=== PATIENT | female | born 1995 | race Caucasian/White ===

== ENCOUNTER 2020-03-11 20:21 | Emergency (ER) | payer MEDICAID ==
[~2020-03-11] VITALS: Ht 152.4 cm; Wt 45.4 kg
[~2020-03-11 20:21] MED LIST: KEP500 PO
[2020-03-11 20:34] VITALS: BP 107/71
--- NOTE | 2020-03-11 20:34 | NUR ---
PT BIBA C/O witnessed seizure lasting approximately 1 min. Per EMS PT was walking with family when seizure occured, fell concrete, PT non-compliant with keppra. PT has laceration to chin, bleeding controlled with gauze. PT AAOx4, cooperative, calm, giving 1 word answers to questions. EMS put PT in cervical collar, started 18G IV in LT AC, and started 1L NS bolus PMH:seizure
[2020-03-11] MEDS ORDERED: NACL 0.9% 1,000 ML IV ONE (20:40)
--- NOTE | 2020-03-11 20:44 | NUR ---
PT WOUND CLEANED WITH NORMAL SALINE
[2020-03-11] MEDS ORDERED: KETOROLAC 30 MG/ML VIAL IVP ONE (20:45)
[2020-03-11] MEDS ORDERED: LIDOCAINE 2% 1000 MG/50 ML VIAL INJ ONE (20:45)
[2020-03-11 20:56] LABS: BASOPHILS % (AUTO) 0.6 % (0.0-2.0); EOSINOPHILS # (AUTO) 0.1 K/uL (0-0.4); EOSINOPHILS % (AUTO) 1.2 % (0.0-4.0); HEMATOCRIT 35.9 % (36-48); HEMOGLOBIN 11.8 g/dL (12.0-16.0); LYMPHOCYTES # (AUTO) 1.8 K/uL (2.5-16.5); LYMPHOCYTES % (AUTO) 25.4 % (20.5-51.1); MEAN CORPUSCULAR HEMOGLOBIN 29 pg (27-31); MEAN CORPUSCULAR HGB CONC 33 g/dL (33-37); MEAN CORPUSCULAR VOLUME 87.8 fL (80-94); MONOCYTES # (AUTO) 0.4 K/uL (0.8-1.0); MONOCYTES % (AUTO) 6.2 % (1.7-9.3); NEUTROPHILS # (AUTO) 4.7 K/uL (1.8-7.7); NEUTROPHILS % (AUTO) 66.6 % (42.2-75.2); PLATELET COUNT (AUTO) 228 K/uL (140-450); RED BLOOD CELL COUNT(AUTO) 4.09 MIL/uL (4.20-5.40); RED CELL DISTRIBUTION WIDTH 12.9 % (11.6-13.7); WHITE BLOOD COUNT (AUTO) 7.1 K/uL (4.8-10.8)
[2020-03-11 21:10] LABS: ACETAMINOPHEN < 0.5 ug/ml (10-30); ALBUMIN 3.4 g/dL (3.4-5.0); ANION GAP 13.6 (8-16); ASPARTATE AMINOTRANSFERASE 16 U/L (15-37); CARBON DIOXIDE 25.9 mmol/L (21-32); CHLORIDE 107 mmol/L (98-107); CREATININE 0.8 mg/dL (0.6-1.3); GFR ARICAN-AMERICAN 112 mL/min (>90); GLUCOSE 104 mg/dL (74-106); POTASSIUM 3.5 mmol/L (3.5-5.1); SALICYLATE < 2.8 mg/dL (2.8-20.0); SODIUM SERUM 143 mmol/L (136-145); TOTAL BILIRUBIN 0.2 mg/dL (0.0-1.0); UREA NITROGEN, BLOOD 8 mg/dL (7-18)
--- NOTE | 2020-03-11 21:17 | NUR ---
PT TAKEN TO CT VIA RBO.
[2020-03-11] MEDS ORDERED: levETIRAcetam 1,000 MG in NACL 0.9% 100 ML IV ONE (22:15)
--- NOTE | 2020-03-11 22:17 | NUR ---
Luis boston in [facility] - 03/11/20 at 2219 by SEN per pt daughter PT specialist is Dr Goddard, phone number is [phone]. PT PCP is Dr Forbes, phone number [phone]
[2020-03-11] MEDS ORDERED: levETIRAcetam 100 MG/ML VIAL IV ONE (22:25)
--- NOTE | 2020-03-11 22:46 | NUR ---
PER DR CLAUDE DIAZ TO REMOVE C COLLAR FROM PT
--- NOTE | 2020-03-11 23:12 | NUR ---
DR ARCE AT BEDSIDE FOR BEDSIDE PROCEDURE
[2020-03-11] MEDS ORDERED: BACITRACIN OINT 500 UNITS/GM PKT TP ONE (23:15)
[2020-03-11] MEDS ORDERED: IBUPROFEN 800 MG TAB PO ONE (23:20)
[2020-03-11 23:41] VITALS: BP 98/61
--- NOTE | 2020-03-11 23:41 | NUR ---
Patient discharged with v/s stable. Written and verbal after care instructions given and explained. Patient alert, oriented and verbalized understanding of instructions. Ambulatory with steady gait. All questions addressed prior to discharge. ID band removed. Patient advised to follow up with PMD. Rx of KEPPRA, MOTRIN, BACTRIM, NEOSPORIN given. Patient educated on indication of medication including possible reaction and side effects. Opportunity to ask questions provided and answered.
[2020-03-12 01:36] LABS: BARBITURATE, URINE NEGATIVE ng/ml (NEG <=200); BENZODIAZEPINE, URINE NEGATIVE ng/mL (NEG <=200); CANNABINOID, URINE NEGATIVE ng/mL (NEG <=50); COCAINE, URINE NEGATIVE ng/mL (NEG <=300); OPIATE, URINE NEGATIVE ng/mL (NEG <=2000); PHENCYCLIDINE SCREEN,URINE NEGATIVE ng/mL (NEG <=25)
== END 2020-03-11 23:41 | disposition home or self-care (01) ==
LOC: MED 20:21
DX: S01.81XA Laceration without foreign body of other part of head, initial encounter (principal); R56.9 Unspecified convulsions; W18.39XA Other fall on same level, initial encounter; Z79.899 Other long term (current) drug therapy; Y93.89 Activity, other specified; Y92.89 Other specified places as the place of occurrence of the external cause; Y99.8 Other external cause status
CPT/HCPCS: 12013; 36415; 70450; 70486; 72125; 80053; 80305; 81025; 85025; 90471; 90715; 96374; 99285; G0480; G0482; J1885; J1953; J2001; J7030; 93005

== ENCOUNTER 2020-04-09 22:02 | Emergency (ER) | payer MEDICAID ==
[~2020-04-09] VITALS: Ht 152.4 cm; Wt 40.8 kg
--- NOTE | 2020-04-09 22:02 | NUR ---
PT JABIER ALS. TAKEN TO BED 2
[2020-04-09 22:04] VITALS: BP 117/90
--- NOTE | 2020-04-09 22:20 | NUR ---
25 Y/O FEMALE BIB [facility] S/P POSSIBLE SEIZURE. PT STATES SHE HAS A RARE FORM OF EPILEPSY BUT DOES NOT KNOW THE NAME NOR THE MEDICATION SHE TAKES. DURING ASSESSMENT PT HAD A PSEUDO SEIZURE WITH NO POST TICAL STATE. PT STATES SHE ONLY SMOKED MARIJUANA TODAY, BUT NO FURTHER DRUG OR ALCOHOL USE. AAOX4. GCS 15. PERRLA, 3MM. UNABLE TO AMBULATE AT THIS TIME. PT IS INCONTINENT IN BED. RESP EVEN AND UNLABORED. LUNG SOUNDS CLEAR BILAT. PMH: SEIZURES NKA
[2020-04-09 22:25] LABS: BASOPHILS % (AUTO) 0.2 % (0.0-2.0); EOSINOPHILS # (AUTO) 0.1 K/uL (0-0.4); EOSINOPHILS % (AUTO) 1.8 % (0.0-4.0); HEMOGLOBIN 12.4 g/dL (12.0-16.0); LYMPHOCYTES % (AUTO) 32.4 % (20.5-51.1); MEAN CORPUSCULAR HEMOGLOBIN 30 pg (27-31); MEAN CORPUSCULAR HGB CONC 34 g/dL (33-37); MEAN CORPUSCULAR VOLUME 88.5 fL (80-94); MONOCYTES # (AUTO) 0.5 K/uL (0.8-1.0); MONOCYTES % (AUTO) 7.4 % (1.7-9.3); NEUTROPHILS # (AUTO) 3.6 K/uL (1.8-7.7); NEUTROPHILS % (AUTO) 58.2 % (42.2-75.2); PLATELET COUNT (AUTO) 217 K/uL (140-450); RED BLOOD CELL COUNT(AUTO) 4.18 MIL/uL (4.20-5.40); RED CELL DISTRIBUTION WIDTH 13.4 % (11.6-13.7); WHITE BLOOD COUNT (AUTO) 6.2 K/uL (4.8-10.8)
[2020-04-09 22:46] LABS: ANION GAP 15.6 (8-16); CARBON DIOXIDE 24.4 mmol/L (21-32); CREATININE 1.1 mg/dL (0.6-1.3)
--- NOTE | 2020-04-09 22:50 | NUR ---
Dr. Irving examining patient.
[2020-04-09] MEDS ORDERED: POTASSIUM CHLORIDE 10 MEQ TABER PO ONE (22:55)
[2020-04-09 23:29] VITALS: BP 117/90
--- NOTE | 2020-04-09 23:29 | NUR ---
Patient discharged with v/s stable. Written and verbal after care instructions given and explained. Patient verbalized understanding. Ambulatory with steady gait. All questions addressed prior to discharge. Advised to follow up with PMD.
== END 2020-04-09 23:29 | disposition home or self-care (01) ==
LOC: MED 22:02
DX: R56.9 Unspecified convulsions (principal); F12.10 Cannabis abuse, uncomplicated; Z79.899 Other long term (current) drug therapy
CPT/HCPCS: 36415; 80048; 85025; 99283

== ENCOUNTER 2020-04-10 14:14 | Emergency (ER) | payer MEDICAID ==
[~2020-04-10] VITALS: Ht 152.4 cm; Wt 45.4 kg
[2020-04-10 14:14] VITALS: BP 119/73
--- NOTE | 2020-04-10 14:16 | NUR ---
Pt was carried to bed by family/friend for possible s/p seizure.
--- NOTE | 2020-04-10 14:16 | NUR ---
PT TAKEN TO ER BED 07
--- NOTE | 2020-04-10 14:30 | NUR ---
25/F brought in carried by family/friend to bed for possible s/p seizure. Pt was seen here for seizure yesterday, was discharged. Pt is stuporous at this time, responsive to pain. Temp 99.8 temporal, HR 139. Lung sounds clear BL. BS active x4, abd soft flat nontender. Dr Lopez aware. Hx epilepsy/seizure
--- NOTE | 2020-04-10 14:50 | NUR ---
AT EVALUATING PT AT BEDSIDE
[2020-04-10] MEDS ORDERED: NACL 0.9% 1,000 ML IV ONE (15:00)
--- NOTE | 2020-04-10 15:15 | NUR ---
PT AMBULATED TO RESTROOM WITH STEADY GAIT
--- NOTE | 2020-04-10 15:30 | NUR ---
20 G IV PLACED TO L AC, LABS DRAWN AND HANDED TO SUPERVISOR POWER REACTOR AT BEDSIDE.
[2020-04-10 15:40] LABS: BASOPHILS % (AUTO) 0.5 % (0.0-2.0); EOSINOPHILS % (AUTO) 0.4 % (0.0-4.0); HEMATOCRIT 39.4 % (36-48); LYMPHOCYTES # (AUTO) 1.5 K/uL (2.5-16.5); LYMPHOCYTES % (AUTO) 23.2 % (20.5-51.1); MEAN CORPUSCULAR HEMOGLOBIN 29 pg (27-31); MEAN CORPUSCULAR HGB CONC 33 g/dL (33-37); MEAN CORPUSCULAR VOLUME 88.7 fL (80-94); MONOCYTES # (AUTO) 0.4 K/uL (0.8-1.0); MONOCYTES % (AUTO) 6.1 % (1.7-9.3); NEUTROPHILS # (AUTO) 4.5 K/uL (1.8-7.7); NEUTROPHILS % (AUTO) 69.8 % (42.2-75.2); PLATELET COUNT (AUTO) 240 K/uL (140-450); RED BLOOD CELL COUNT(AUTO) 4.44 MIL/uL (4.20-5.40); RED CELL DISTRIBUTION WIDTH 13.5 % (11.6-13.7); WHITE BLOOD COUNT (AUTO) 6.5 K/uL (4.8-10.8)
[2020-04-10 15:50] LABS: BARBITURATE, URINE NEGATIVE ng/ml (NEG <=200); BENZODIAZEPINE, URINE NEGATIVE ng/mL (NEG <=200); CANNABINOID, URINE POSITIVE ng/mL (NEG <=50); COCAINE, URINE NEGATIVE ng/mL (NEG <=300); OPIATE, URINE NEGATIVE ng/mL (NEG <=2000); PHENCYCLIDINE SCREEN,URINE NEGATIVE ng/mL (NEG <=25)
[2020-04-10 16:00] LABS: ACETAMINOPHEN < 0.5 ug/ml (10-30); ALBUMIN 4.1 g/dL (3.4-5.0); ANION GAP 12.1 (8-16); ASPARTATE AMINOTRANSFERASE 17 U/L (15-37); CARBON DIOXIDE 25.2 mmol/L (21-32); CHLORIDE 105 mmol/L (98-107); CREATININE 0.9 mg/dL (0.6-1.3); GFR ARICAN-AMERICAN 97 mL/min (>90); GLUCOSE 163 mg/dL (74-106); POTASSIUM 3.3 mmol/L (3.5-5.1); SALICYLATE < 2.8 mg/dL (2.8-20.0); SODIUM SERUM 139 mmol/L (136-145); TOTAL BILIRUBIN 0.6 mg/dL (0.0-1.0); UREA NITROGEN, BLOOD 11 mg/dL (7-18)
--- NOTE | 2020-04-10 16:34 | NUR ---
PT GOING TO PICK HER UP IN 5 MIN
[2020-04-10 16:47] VITALS: BP 121/74
--- NOTE | 2020-04-10 16:48 | NUR ---
pt d/c and will be driven home by Pasquale
== END 2020-04-10 16:47 | disposition home or self-care (01) ==
LOC: MED 14:14
DX: G40.802 Other epilepsy, not intractable, without status epilepticus (principal); Z79.899 Other long term (current) drug therapy
CPT/HCPCS: 36415; 80053; 80305; 81025; 85025; 93005; 99284; G0480; G0482; J7030

== ENCOUNTER 2020-06-17 00:57 | Emergency (ER) | payer MEDICAID ==
[~2020-06-17] VITALS: Ht 152.4 cm; Wt 43.5 kg
[2020-06-17 01:01] VITALS: BP 101/75
[2020-06-17 01:39] VITALS: BP 101/75
== END 2020-06-17 01:39 | disposition home or self-care (01) ==
LOC: MED 00:57
DX: S89.90XA Unspecified injury of unspecified lower leg, initial encounter (principal); R56.9 Unspecified convulsions; Z79.899 Other long term (current) drug therapy; W57.XXXA Bitten or stung by nonvenomous insect and other nonvenomous arthropods, initial encounter; Y93.89 Activity, other specified; Y92.89 Other specified places as the place of occurrence of the external cause; Y99.8 Other external cause status
CPT/HCPCS: 99282

== ENCOUNTER 2020-09-02 15:32 | Emergency (ER) | payer MEDICAID ==
[~2020-09-02] VITALS: Ht 152.4 cm; Wt 43.6 kg
[2020-09-02 15:35] VITALS: BP 110/60
--- NOTE | 2020-09-02 15:40 | NUR ---
PT REQUESTING TO LEAVE AMA, DR ARCE MADE AWARE
--- NOTE | 2020-09-02 15:53 | NUR ---
PT SPEAKING WITH ON PHONE - PT WANTS TO LEAVE AMA. DR. ARCE AWARE
[2020-09-02 16:04] VITALS: BP 110/60
--- NOTE | 2020-09-02 16:04 | NUR ---
Patient discharged with v/s stable. Written and verbal after care instructions given and explained. Patient alert, oriented and verbalized understanding of instructions. Ambulatory with steady gait. All questions addressed prior to discharge. ID band removed. Patient advised to follow up with PMD. Rx of KEKARIME given. Patient educated on indication of medication including possible reaction and side effects. Opportunity to ask questions provided and answered.
--- NOTE | 2020-09-02 16:04 | NUR ---
Patient does not wish to proceed with medical care recommended by DR. ARCE. Patient given information related to possible complications, up to and including , which could occur as a result of leaving hospital at this time. Patient verbalizes understanding of risks involved leaving against medical advice. Patient has signed AMA form.
== END 2020-09-02 16:04 | disposition left against medical advice (07) ==
LOC: MED 15:32
DX: R56.9 Unspecified convulsions (principal); Z79.899 Other long term (current) drug therapy
CPT/HCPCS: 99283

== ENCOUNTER 2020-09-26 13:10 | Emergency (ER) | payer MEDICAID ==
[~2020-09-26] VITALS: Ht 152.4 cm; Wt 41.5 kg
[2020-09-26 13:13] VITALS: BP 103/60
--- NOTE | 2020-09-26 13:25 | NUR ---
Pt taken to bed 7
--- NOTE | 2020-09-26 13:35 | NUR ---
PATIENT PRESENTS TO ED C/O MULTIPLE SEIZURES THAT HAPPENED TODAY. PT STATES THAT SHE HAS A HX OF SZ SINCE SHE WAS 16. PT STATED THAT SHE FELL DURING HER SZ TODAY RESULTING IN A BRUISE TO HER RIGHT EYE. PT DOES NOT REMEMBER ANT LOC. PT STATES THAT SHE FEELS NAUSEA AT THIS TIME. DENIES ANY V/D; SKIN IS PINK/WARM/DRY; AAOX4 WITH EVEN AND STEADY GAIT; LUNGS CLEAR BL; HR EVEN AND REGULAR; PT DENIES ANY FEVER, CP, SOB, OR COUGH AT THIS TIME; PATIENT STATES PAIN OF 6/10 AT THIS TIME; VSS; PATIENT POSITIONED FOR COMFORT; HOB ELEVATED; BEDRAILS UP X2; BED DOWN AND SEIZURE PRECAUTIONS IN PLACE. ER MD MADE AWARE OF PT STATUS.
[2020-09-26] MEDS ORDERED: levETIRAcetam 1,000 MG in NACL 0.9% 100 ML IV ONE (13:45)
[2020-09-26] MEDS ORDERED: NACL 0.9% 1,000 ML IV ONE (13:45)
[2020-09-26] MEDS ORDERED: LORazepam 2 MG/ML VIAL IVP ONE (13:45)
[2020-09-26] MEDS ORDERED: levETIRAcetam 100 MG/ML VIAL IV ONE (13:48)
[2020-09-26 14:00] LABS: BASOPHILS % (AUTO) 0.3 % (0.0-2.0); EOSINOPHILS % (AUTO) 0.3 % (0.0-4.0); HEMOGLOBIN 13.3 g/dL (12.0-16.0); LYMPHOCYTES # (AUTO) 0.6 K/uL (2.5-16.5); LYMPHOCYTES % (AUTO) 7.9 % (20.5-51.1); MEAN CORPUSCULAR HEMOGLOBIN 30 pg (27-31); MEAN CORPUSCULAR HGB CONC 34 g/dL (33-37); MEAN CORPUSCULAR VOLUME 87.1 fL (80-94); MONOCYTES # (AUTO) 0.4 K/uL (0.8-1.0); MONOCYTES % (AUTO) 4.9 % (1.7-9.3); NEUTROPHILS # (AUTO) 6.4 K/uL (1.8-7.7); NEUTROPHILS % (AUTO) 86.6 % (42.2-75.2); PLATELET COUNT (AUTO) 235 K/uL (140-450); RED BLOOD CELL COUNT(AUTO) 4.48 MIL/uL (4.20-5.40); RED CELL DISTRIBUTION WIDTH 13.3 % (11.6-13.7); WHITE BLOOD COUNT (AUTO) 7.4 K/uL (4.8-10.8)
--- NOTE | 2020-09-26 14:02 | NUR ---
PT TAKEN TO CT VIA RADHA
[2020-09-26 14:14] LABS: ANION GAP 15.3 (8-16); CARBON DIOXIDE 24.4 mmol/L (21-32); CREATININE 0.6 mg/dL (0.6-1.3); POTASSIUM 3.7 mmol/L (3.5-5.1)
--- NOTE | 2020-09-26 14:17 | NUR ---
RETURNED FROM CT
--- NOTE | 2020-09-26 14:17 | NUR ---
EKG IN PROGRESS
--- NOTE | 2020-09-26 14:17 | NUR ---
PT RETURNED FROM CT
--- NOTE | 2020-09-26 14:17 | NUR ---
EMT AT BEDSIDE TO PERFORM EKG
--- NOTE | 2020-09-26 14:20 | NUR ---
Luis boston in [facility] - 09/26/20 at 1431 by KEVIN ATIVAN WAS GIVEN UPON RETURN TO ER FROM CT, PT IS ON GURNEY WITH EYES CLOSED AND IS UNCOOPERATIVE. RESPONDS TO PAINFUL STIMULI, RESPIRATIONS ARE REGULAR AND UNLABORED.
--- NOTE | 2020-09-26 14:20 | NUR ---
PT WAS GIVEN ATIVAN PRIOR TO TRANSFER TO CT. UPON RETURN TO ER, PT IS NON-VERBAL WITH EYES CLOSED AND IS UNCOOPERATIVE. RESPONDS TO PAINFUL STIMULI AND RESPIRATIONS ARE REGULAR AND UNLABORED.
[2020-09-26] MEDS ORDERED: KETOROLAC 15 MG/ML VIAL IVP ONE (14:45)
--- NOTE | 2020-09-26 16:00 | NUR ---
CONTINUES TO REST QUIETLY WITH EYES CLOSED. RESPIRATIONS REGULAR AND UNLABORED
--- NOTE | 2020-09-26 18:08 | NUR ---
PREPARING FOR DISCHARGE. IV D/C'D. PT CALLING FOR RIDE HOME. DENIES PAIN OR DISCOMFORT AT THIS TIME.
[2020-09-26 18:10] VITALS: BP 93/57
== END 2020-09-26 18:11 | disposition home or self-care (01) ==
LOC: MED 13:10
DX: R56.9 Unspecified convulsions (principal); Z79.899 Other long term (current) drug therapy
CPT/HCPCS: 36415; 70450; 71045; 72125; 80048; 81025; 85025; 93005; 96365; 96375; 99285; J1885; J1953; J2060; J7030; 96361

== ENCOUNTER 2021-01-07 03:20 | Emergency (ER) | payer MEDICAID ==
[~2021-01-07] VITALS: Ht 152.4 cm; Wt 40.5 kg
[2021-01-07 03:22] VITALS: BP 112/81
--- NOTE | 2021-01-07 03:22 | NUR ---
to bed ambulatory
--- NOTE | 2021-01-07 03:37 | NUR ---
Dr. Borrero examining patient.
--- NOTE | 2021-01-07 03:50 | NUR ---
PT HAS A HISTORY OF SEIZURES, TAKES KEPPRA DAILY, CAME IN THIS MORNING BECAUSE SHE FELT LIKE SHE WAS GOING TO HAVE A SEIZURE. PT DENIES ANY DIZZINESS, NO VISION ISSUES, NO N/V/D. PT CLAIMS SHE HAS SEIZURES DAILY EVEN WITH HER MEDS, BUT SHE HASN'T HAD ONE IN THE LAST THREE DAYS. A/O X 4. PT AMBULATES WITH STEADY GAIT. BED IS IN LOWEST POSITION AND SIDERAIL UP X 1 FOR PT SAFETY. NKA HX - SEIZURES
[2021-01-07 03:51] VITALS: BP 112/81
== END 2021-01-07 03:52 | disposition home or self-care (01) ==
LOC: MED 03:20
DX: R56.9 Unspecified convulsions (principal); Z79.899 Other long term (current) drug therapy
CPT/HCPCS: 99283

== ENCOUNTER 2021-04-15 03:45 | Emergency (ER) | payer MEDICAID ==
[~2021-04-15] VITALS: Ht 152.4 cm; Wt 40.0 kg
--- NOTE | 2021-04-15 03:50 | NUR ---
Dr. Quinn examining patient at triage
[2021-04-15 03:59] VITALS: BP 103/55
--- NOTE | 2021-04-15 04:05 | NUR ---
PT TAKEN TO BED 1
[2021-04-15] MEDS ORDERED: diphenhydrAMINE 50 MG CAP PO ONE (04:10)
--- NOTE | 2021-04-15 04:13 | NUR ---
PT BIB SELF FOR C/O ANXIETY X 1 HOUR. PT STATES SHE HAD 2 SIEZURES THIS MORNING, WHICH IS TYPICALLY FOLLOWING BY ANXIETY. SHE REPORTS TAKING KEPPRA FOR HER SIEZURES. SHE DENIES N/V/D, FEVER, CHILLS, CP, SOB, PAIN AT THIS TIME. SEE COMPLETE ASSESSMENT FOR FURTHER DETAILS. MED HX: SIEZURES ALLERGIES: PEACHES
[2021-04-15] MEDS ORDERED: HYDR-640 PO (04:23)
[2021-04-15 04:30] VITALS: BP 103/55
--- NOTE | 2021-04-15 04:30 | NUR ---
Patient discharged with v/s stable. Written and verbal after care instructions given and explained. Patient alert, oriented and verbalized understanding of instructions. Ambulatory with steady gait. All questions addressed prior to discharge. ID band removed. Patient advised to follow up with PMD. Rx of HYDROXYZINE given. Patient educated on indication of medication including possible reaction and side effects. Opportunity to ask questions provided and answered. CONFIRMED PT NOT DRIVING SELF, WAITING IN LOBBY.
== END 2021-04-15 04:30 | disposition home or self-care (01) ==
LOC: MED 03:45
DX: F41.9 Anxiety disorder, unspecified (principal); Z79.899 Other long term (current) drug therapy
CPT/HCPCS: 81025; 99283; Q0163

== ENCOUNTER 2021-07-28 20:32 | Emergency (ER) | payer MEDICAID ==
[~2021-07-28] VITALS: Ht 160 cm; Wt 63.0 kg
[~2021-07-28 20:32] MED LIST changes: +HYDR-640 PO
[2021-07-28] MEDS ORDERED: LIDOCAINE MPF 1% 10 MG/ML VIAL INJ ONE (21:50)
[2021-07-28] MEDS ORDERED: ACETAMINOPHEN 325 MG TAB PO ONE (21:50)
[2021-07-28] MEDS ORDERED: ONDANSETRON 4 MG ODT PO ONE (21:50)
[2021-07-28] MEDS ORDERED: levETIRAcetam 500 MG TAB PO ONE (21:50)
[2021-07-28 22:19] LABS: BASOPHILS % (AUTO) 0.4 % (0.0-2.0); EOSINOPHILS # (AUTO) 0.1 K/uL (0-0.4); EOSINOPHILS % (AUTO) 0.6 % (0.0-4.0); HEMATOCRIT 40.8 % (36-48); HEMOGLOBIN 13.4 g/dL (12.0-16.0); LYMPHOCYTES # (AUTO) 1.1 K/uL (2.5-16.5); LYMPHOCYTES % (AUTO) 13.7 % (20.5-51.1); MEAN CORPUSCULAR HEMOGLOBIN 29 pg (27-31); MEAN CORPUSCULAR HGB CONC 33 g/dL (33-37); MEAN CORPUSCULAR VOLUME 87.7 fL (80-94); MONOCYTES # (AUTO) 0.5 K/uL (0.8-1.0); MONOCYTES % (AUTO) 5.9 % (1.7-9.3); NEUTROPHILS # (AUTO) 6.3 K/uL (1.8-7.7); NEUTROPHILS % (AUTO) 79.4 % (42.2-75.2); PLATELET COUNT (AUTO) 293 K/uL (140-450); RED BLOOD CELL COUNT(AUTO) 4.65 MIL/uL (4.20-5.40); RED CELL DISTRIBUTION WIDTH 13.6 % (11.6-13.7)
[2021-07-28 22:30] VITALS: BP 100/68
[2021-07-28 22:36] LABS: ANION GAP 10.6 (8-16); CARBON DIOXIDE 28.4 mmol/L (21-32); CREATININE 0.7 mg/dL (0.6-1.3)
[2021-07-29] MEDS ORDERED: ACETAMINOPHEN 325 MG TAB ONE (00:11)
[2021-07-29] MEDS ORDERED: ONDANSETRON 4 MG ODT ONE (00:11)
[2021-07-29] MEDS ORDERED: LIDOCAINE MPF 1% 5 ML ONE (00:12)
[2021-07-29] MEDS ORDERED: levETIRAcetam 500 MG TAB ONE (00:12)
--- NOTE | 2021-07-29 00:15 | NUR ---
DR. ECHAVARRIA PLACING SUTURES IN TRIAGE.
[2021-07-29] MEDS ORDERED: KEP500 PO (00:28)
[2021-07-29] MEDS ORDERED: BACITRACIN OINT 500 UNITS/GM PKT TP ONE (00:30)
[2021-07-29 00:59] VITALS: BP 104/62
== END 2021-07-29 00:59 | disposition home or self-care (01) ==
LOC: MED 20:32
DX: S01.81XA Laceration without foreign body of other part of head, initial encounter (principal); R11.2 Nausea with vomiting, unspecified; R56.9 Unspecified convulsions; Z79.899 Other long term (current) drug therapy; Z91.018 Allergy to other foods; W22.8XXA Striking against or struck by other objects, initial encounter; Y93.89 Activity, other specified; Y92.89 Other specified places as the place of occurrence of the external cause; Y99.8 Other external cause status
CPT/HCPCS: 12011; 36415; 70450; 71045; 80048; 84703; 85025; 90471; 90715; 93005; 99285; J2001; Q0162; Q0092

== ENCOUNTER 2022-06-03 17:57 | Emergency (ER) | payer MEDICAID ==
[~2022-06-03] VITALS: Ht 152.4 cm; Wt 42.8 kg
[2022-06-03 18:07] VITALS: BP 106/55
[2022-06-03] MEDS ORDERED: levETIRAcetam 500 MG TAB PO ONE (18:50)
[2022-06-03] MEDS ORDERED: LIDOCAINE 2% 1000 MG/50 ML VIAL INJ ONE (18:50)
[2022-06-03] MEDS ORDERED: LIDOCAINE MPF 1% 5 ML ONE (19:25)
[2022-06-03] MEDS ORDERED: BACITRACIN OINT 500 UNITS/GM PKT TP ONE (21:34)
[2022-06-03 22:07] VITALS: BP 136/78
== END 2022-06-03 22:09 | disposition home or self-care (01) ==
LOC: MED 17:57
DX: S01.111A Laceration without foreign body of right eyelid and periocular area, initial encounter (principal); G40.501 Epileptic seizures related to external causes, not intractable, with status epilepticus; Z91.018 Allergy to other foods; X58.XXXA Exposure to other specified factors, initial encounter; Y93.89 Activity, other specified; Y92.89 Other specified places as the place of occurrence of the external cause; Y99.8 Other external cause status
CPT/HCPCS: 12011; 70450; 70486; 72125; 81002; 81025; 99284; J2001

== ENCOUNTER 2022-06-19 21:04 | Emergency (ER) | payer MEDICAID ==
[~2022-06-19] VITALS: Ht 152.4 cm; Wt 47.6 kg
[2022-06-19 21:51] VITALS: BP 128/64
[2022-06-19 23:15] VITALS: BP 128/64
== END 2022-06-19 23:15 | disposition home or self-care (01) ==
LOC: MED 21:04
DX: S01.111D Laceration without foreign body of right eyelid and periocular area, subsequent encounter (principal); Z91.013 Allergy to seafood; Z79.899 Other long term (current) drug therapy; X58.XXXD Exposure to other specified factors, subsequent encounter
CPT/HCPCS: 99281

== ENCOUNTER 2022-07-02 18:44 | Emergency (ER) | payer MEDICAID ==
[~2022-07-02] VITALS: Ht 152.4 cm; Wt 40.9 kg
[2022-07-02 19:25] VITALS: BP 150/67
--- NOTE | 2022-07-02 19:28 | NUR ---
TO LOBBY A/W BED AMBULATORY
[2022-07-02] MEDS ORDERED: KEP500 PO (20:47)
[2022-07-02] MEDS ORDERED: HYD1C TP (20:48)
--- NOTE | 2022-07-02 21:40 | NUR ---
27 Y/O FEMALE BIBS FROM HOME, C/O GEN WEAK WITH SEIZURES AND LEG CRAMPS. PT STATES UNABLE TO SEE PCP FOR APPOINTMENT. PT STATES HER HUBSAND WITNESSES HER HAVING FREQUENT SEIZURES. PT WILL HAVE AN AURA OF LEG CRAMPS AND EYE TWITCHING PRIOR TO SEIZURES. THE CRAMPS MAKE IT DIFFICULT TO WALK DUE TO PAIN 08/25. DENIES FEVER, COUGH, CP, SOB, OR N/V/D. A/OX4, UNLABORED BREATHING, AMBULATORY. SKIN IS PINK/WARM/DRY. HX: SZR, ANX NKA MED: VICTOR MANUEL
--- NOTE | 2022-07-02 21:53 | NUR ---
GAS METER REPAIR SUPERVISOR AT BEDSIDE
[2022-07-02 22:02] LABS: BASOPHILS % (AUTO) 0.8 % (0.0-2.0); EOSINOPHILS # (AUTO) 0.2 K/uL (0-0.4); EOSINOPHILS % (AUTO) 3.4 % (0.0-4.0); HEMATOCRIT 39.2 % (36-48); LYMPHOCYTES # (AUTO) 1.8 K/uL (2.5-16.5); LYMPHOCYTES % (AUTO) 36.8 % (20.5-51.1); MEAN CORPUSCULAR HEMOGLOBIN 29 pg (27-31); MEAN CORPUSCULAR HGB CONC 33 g/dL (33-37); MEAN CORPUSCULAR VOLUME 88.5 fL (80-94); MONOCYTES # (AUTO) 0.5 K/uL (0.8-1.0); MONOCYTES % (AUTO) 9.6 % (1.7-9.3); NEUTROPHILS # (AUTO) 2.4 K/uL (1.8-7.7); NEUTROPHILS % (AUTO) 49.4 % (42.2-75.2); PLATELET COUNT (AUTO) 286 K/uL (140-450); RED BLOOD CELL COUNT(AUTO) 4.43 MIL/uL (4.20-5.40); WHITE BLOOD COUNT (AUTO) 4.9 K/uL (4.8-10.8)
[2022-07-02 22:13] LABS: ANION GAP 11.7 (8-16); CARBON DIOXIDE 27.8 mmol/L (21-32); CREATININE 0.6 mg/dL (0.6-1.3); POTASSIUM 3.5 mmol/L (3.5-5.1); TOTAL BILIRUBIN 0.2 mg/dL (0.0-1.0)
[2022-07-02 22:33] VITALS: BP 132/70
--- NOTE | 2022-07-02 22:34 | NUR ---
Patient discharged with v/s stable. Written and verbal after care instructions given and explained. Patient alert, oriented and verbalized understanding of instructions. Ambulatory with steady gait. All questions addressed prior to discharge. ID band removed. Patient advised to follow up with PMD. Rx of KEPPRA AND HYDROCORTISONE given. Patient educated on indication of medication including possible reaction and side effects. Opportunity to ask questions provided and answered. VSS, A/OX4, AMBULATORY, UNLABORED BREATHING, AND CALM DEMEANOR.
[2022-07-02 22:50] LABS: APPEARANCE,URINE CLEAR (CLEAR); BILIRUBIN,URINE NEGATIVE (NEGATIVE); BLOOD, URINE NEGATIVE (NEGATIVE); COLOR,URINE YELLOW (YELLOW); LEUKOCYTE ESTERASE ,URINE NEGATIVE (NEGATIVE); NITRITE, URINE NEGATIVE (NEGATIVE); UGLUCOSE NEGATIVE (NEGATIVE)
== END 2022-07-02 22:32 | disposition home or self-care (01) ==
LOC: MED 18:44
DX: L29.9 Pruritus, unspecified (principal); G40.909 Epilepsy, unspecified, not intractable, without status epilepticus
CPT/HCPCS: 36415; 80053; 81003; 81025; 85025; 99283